=== PATIENT | male | born 1980 | race African-American/Black ===

== ENCOUNTER 2024-04-21 21:01 | Emergency (ER) | payer OTHER ==
[~2024-04-21] VITALS: Ht 170.2 cm; Wt 100.0 kg
[2024-04-21 21:21] VITALS: TEMP 98.4; O2SAT 98
[2024-04-21 21:23] VITALS: BP 115/74; PULSE 90; RESP 18; O2SAT 100
[2024-04-21 21:58] LABS: DIFFERENTIAL COMMENT 1; HEMATOCRIT. 46.1 % (42.0-52.0); HEMOGLOBIN. 15.2 g/dL (14.0-18.0); MEAN CORPUSCULAR HEMOGLOBIN 30.4 pg (28.0-32.0); MEAN CORPUSCULAR HGB CONC 32.9 g/dL (31.0-37.0); MEAN CORPUSCULAR VOLUME 92.3 fL (80.0-94.0); MEAN PLATELET VOLUME 8.3 fl (7.4-10.4); PLATELET 275 x1000/uL (130-400); RED BLOOD CELL COUNT 4.99 mill/uL (4.7-6.1); WHITE BLOOD COUNT 8.9 x1000/uL (4.5-11.0)
[2024-04-21 22:07] LABS: CHLORIDE 106 mEq/L (98-107); PLATELET ESTIMATE NORMAL; SODIUM 139 mEq/L (136-145)
[2024-04-21 22:08] LABS: CARBON DIOXIDE 21 mEq/L (21-32)
[2024-04-21 22:09] LABS: CALCIUM 9.5 mg/dL (8.7-10.4)
[2024-04-21 22:13] LABS: GLUCOSE 117 mg/dL (70-105)
[2024-04-21 22:14] LABS: UREA NITROGEN BLOOD 11 mg/dL (9-23)
[2024-04-21] MEDS ORDERED: ONDANSETRON 4MG ODT PO ONE (23:15)
[2024-04-21 23:34] LABS: ALANINE AMINOTRANSFERASE 76 IU/L (10-49); ALBUMIN 4.8 g/dL (3.2-4.8); ASPARTATE AMINOTRANSFERASE 50 IU/L (<34); BILIRUBIN DIRECT 0.4 mg/dL (<=3.0); BILIRUBIN TOTAL 1.4 mg/dL (0.1-1.0)
== END 2024-04-22 04:12 | disposition left against medical advice (07) ==
LOC: ER 21:01
DX: R11.2 Nausea with vomiting, unspecified (principal); R19.7 Diarrhea, unspecified; R10.84 Generalized abdominal pain
CPT/HCPCS: 36415; 80048; 80076; 85025; 99283